=== PATIENT | female | born 1955 | race Caucasian/White ===

== ENCOUNTER 2018-01-13 09:40 | Emergency (ER) | payer BC ==
[2018-01-13] MEDS: KETOROLAC 30 MG INJ IM (13:14)
[2018-01-13 13:23] LABS: URINE PH (Dip) POC 5.5 (5.0-8.5)
[2018-01-13 13:23] LABS: URINE BLOOD (Dip) POC Trace-intact (NEGATIVE); URINE GLUCOSE (Dip) POC Negative (NEGATIVE); URINE KETONES (Dip) POC Negative (NEGATIVE); URINE LEUKOCYTE EST (Dip) POC Negative (NEGATIVE); URINE NITRITE (Dip) POC Negative (NEGATIVE); URINE TOTAL PROTEIN POC Negative (NEGATIVE)
== END 2018-01-13 13:11 | disposition home or self-care (01) ==
LOC: FTE 09:40
DX: M79.605 Pain in left leg (principal); M79.1 Myalgia; I10 Essential (primary) hypertension
CPT/HCPCS: 81003; 96372; 99284-25